=== PATIENT | female | born 1990 | race Caucasian/White ===

== ENCOUNTER 2016-08-08 11:48 | Emergency (ER) | payer BC ==
[~2016-08-08] VITALS: Ht 160 cm; Wt 51.8 kg
[2016-08-08 11:56] VITALS: BP 107/55; TEMP 97.8
[2016-08-08] MEDS ORDERED: 00186-0370-20 IH (12:00)
[2016-08-08] MEDS ORDERED: SINGULAIR 110 MG/TAB PO (12:00)
[2016-08-08] MEDS ORDERED: ZYRTEC 10MG10 MG PO (12:01)
[2016-08-08 12:59] VITALS: PULSE 72
== END 2016-08-08 12:59 | disposition home or self-care (01) ==
LOC: COL.ER 11:48
DX: R06.00 Dyspnea, unspecified (principal); J45.909 Unspecified asthma, uncomplicated